=== PATIENT | male | born 1955 | race Caucasian/White ===

== ENCOUNTER 2021-11-17 14:41 | Outpatient (CLI) | payer BC, MEDICARE | END 2021-11-17 14:42 | disposition home or self-care (01) | LOC: CSHLAB 14:41 | PROVIDERS: ATTEND Surgery | DX: Z20.822 Contact with and (suspected) exposure to COVID-19 (principal); C20 Malignant neoplasm of rectum | CPT/HCPCS: U0003; U0005 ==

== ENCOUNTER 2021-11-20 08:16 | Day surgery (SDC) | payer BC, MEDICARE ==
[2021-11-18 09:39] VITALS: BMI 29.6
[2021-11-20] MEDS ORDERED: Lidocaine 1% MPF 2 ML VIAL ONE (08:39)
[2021-11-20] MEDS ORDERED: PROPOFOL 40 ML ONE (10:36)
[2021-11-20] MEDS ORDERED: Lidocaine 1% PF 5 ML VIAL ONE (10:36)
== END 2021-11-20 11:45 | disposition home or self-care (01) ==
LOC: CSHSDC 08:16
PROVIDERS: ATTEND Surgery
PROC: 0DBP8ZX Excision of Rectum, Via Natural or Artificial Opening Endoscopic, Diagnostic (ICD-10-PCS; principal; 2021-11-20)
DX: Z12.11 Encounter for screening for malignant neoplasm of colon (principal); K62.1 Rectal polyp; K57.30 Diverticulosis of large intestine without perforation or abscess without bleeding; I10 Essential (primary) hypertension; Z85.048 Personal history of other malignant neoplasm of rectum, rectosigmoid junction, and anus; Z79.899 Other long term (current) drug therapy; Z87.891 Personal history of nicotine dependence
CPT/HCPCS: 88305; J2704